=== PATIENT | female | born 1950 | race Caucasian/White ===

== ENCOUNTER → 2018-08-09 | Outpatient (CLI) | payer MEDICARE, OTHER | END | disposition home or self-care (01) | LOC: CFH 08:52 | PROVIDERS: ATTEND Internal Medicine Cardiovascular Disease | DX: I08.1 Rheumatic disorders of both mitral and tricuspid valves (principal); I10 Essential (primary) hypertension; I48.0 Paroxysmal atrial fibrillation; Z79.01 Long term (current) use of anticoagulants | CPT/HCPCS: 93306 ==

== ENCOUNTER 2019-04-02 12:33 | Outpatient (CLI) | payer MEDICARE, OTHER | END 2019-04-02 23:59 | disposition home or self-care (01) | LOC: CVU 12:33 | PROVIDERS: ATTEND Internal Medicine Cardiovascular Disease | DX: I08.8 Other rheumatic multiple valve diseases (principal); I10 Essential (primary) hypertension; I48.91 Unspecified atrial fibrillation | CPT/HCPCS: 0399T; 93306 ==

== ENCOUNTER 2021-01-03 08:43 | Outpatient (CLI) | payer MEDICARE, OTHER | END 2021-01-03 23:59 | disposition home or self-care (01) | LOC: CFH 08:43 | PROVIDERS: ATTEND Internal Medicine Cardiovascular Disease | DX: I34.0 Nonrheumatic mitral (valve) insufficiency (principal); R06.02 Shortness of breath | CPT/HCPCS: 78452; 93017; A9502 ==

== ENCOUNTER 2021-02-21 11:01 | Emergency (ER) | payer MEDICARE, OTHER ==
[~2021-02-21] VITALS: Ht 157.5 cm; Wt 66.3 kg
--- NOTE | 2021-02-21 11:18 | NUR ---
PT TO ROOM FROM TRIAGE, PT CHANGED INTO GOWN, MONITORS IN PLACE. PT C/O FAST HR STARTING THIS AM AROUND 0630. PT STATES SHES HAS HENDRICKSON, SOB, FATIGUE AND WEAKNESS. HX OF A-FIB. CALL LIGHT WITHIN REACH.
--- NOTE | 2021-02-21 12:27 | NUR ---
PT RESTING ON GURROBERTO, NADN/VSS. PT STATES SHES FEELING "BETTER." CALL LIGHT WITHIN REACH. BED IN LOWEST POSITION, BED RAILS UP X2. AWAITING ERP EVAL
[2021-02-21 13:17] VITALS: BP 127/79
[2021-02-21 13:17] LABS: BASOPHILS % (AUTO) 1 % (0-1); EOSINOPHILS % (AUTO) 2 % (1-7); LYMPHOCYTES % (AUTO) 30 % (22-44); MEAN CORPUSCULAR HEMOGLOBIN 30.9 pg (27.0-34.8); MEAN CORPUSCULAR HGB CONC 33.7 g/dL (32.4-35.8); MEAN PLATELET VOLUME 7.7 fL (7.4-10.4); MONOCYTES % (AUTO) 14 % (2-9); NEUTROPHILS % (AUTO) 53 % (42-75); PLATELET COUNT 228 x10^3/uL (130-400); RED BLOOD COUNT 4.47 x10^6/uL (3.82-5.3); RED CELL DISTRIBUTION WIDTH 17.3 % (9.6-15.2)
[2021-02-21 13:24] LABS: ALBUMIN 3.5 g/dL (3.4-5.0); ANION GAP 5 mmol/L (5-15); CALCIUM 8.8 mg/dL (8.5-10.1); CHLORIDE 106 mmol/L (98-107); CREATININE 0.92 mg/dL (0.55-1.02)
[2021-02-21 13:34] LABS: TROPONIN I < 0.015 ng/mL (0.000-0.045)
--- NOTE | 2021-02-21 13:40 | NUR ---
Covering primary for break, pt in NAD no change in assessment.
--- NOTE | 2021-02-21 14:30 | NUR ---
PT SITTING ON MIRA MUNGUIA/VAIBHAV. 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 PT CHART UP FOR RECHECK. NO NEEDS AT THIS TIME
--- NOTE | 2021-02-21 15:04 | NUR ---
Patient given discharge instructions and they have confirmed that they understand the instructions. Patient ambulatory with steady gait.
== END 2021-02-21 15:23 | disposition home or self-care (01) ==
LOC: ED 11:41
DX: R00.2 Palpitations (principal); I10 Essential (primary) hypertension; I48.91 Unspecified atrial fibrillation
CPT/HCPCS: 36415; 80048; 82040; 83735; 84443; 84484; 85025; 93005; 99284